=== PATIENT | female | born 1950 | race Two or more races ===

== ENCOUNTER → 2023-08-24 | Emergency (ER) | payer OTHER ==
[~2023-08-24] VITALS: Ht 167.6 cm; Wt 92.5 kg
[~2023-08-24] MED LIST: CARVEDILOL ER40 MG PO; COZAAR50 MG PO; GLUMETZA500 MG PO
== END | disposition left against medical advice (07) ==
LOC: ER 00:36
DX: Z53.21 Procedure and treatment not carried out due to patient leaving prior to being seen by health care provider (principal)